=== PATIENT | male | born 2000 | race African-American/Black ===

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

== ENCOUNTER 2019-10-25 20:51 | Emergency (ER) | payer SELFPAY ==
[2019-10-25] MEDS ORDERED: Naproxen 500 MG TAB ONE (21:12)
== END 2019-10-25 21:25 | disposition home or self-care (01) ==
LOC: NAV ERS 20:51
DX: M77.9 Enthesopathy, unspecified (principal)
CPT/HCPCS: 99283

== ENCOUNTER 2019-12-28 15:14 | Emergency (ER) | payer SELFPAY | END 2019-12-28 15:45 | disposition home or self-care (01) | LOC: NAV ERS 15:14 | DX: K08.89 Other specified disorders of teeth and supporting structures (principal) | CPT/HCPCS: 99282 ==

== ENCOUNTER 2020-05-01 19:57 | Emergency (ER) | payer SELFPAY ==
[2020-05-01] MEDS ORDERED: Ibuprofen 800 MG TAB ONE (20:25)
[2020-05-01] MEDS ORDERED: AMOXicillin 250 MG CAP ONE (20:25)
== END 2020-05-01 20:41 | disposition home or self-care (01) ==
LOC: NAV ERS 19:57
DX: K02.9 Dental caries, unspecified (principal)
CPT/HCPCS: 99282